=== PATIENT | female | born 1965 | race African-American/Black ===

== ENCOUNTER 2020-09-01 13:44 | Emergency (ER) | payer OTHER ==
[~2020-09-01] VITALS: Ht 165.1 cm; Wt 59.1 kg
[~2020-09-01 13:44] MED LIST: ALBU8.5H8 IH; ALBU8HFA4 IH; AZIT-84 PO; BENZ-51 PO; CLON0.1T2 PO; LORA10TA7 PO; LOSA50TA37 PO; VERA240C3 PO
[2020-09-01] MEDS ORDERED: PERTUSS(ACELL),DIPH,TET VAC/PF 0.5 ML VIAL IM ONE (15:00)
[2020-09-01] MEDS ORDERED: LIDOCAINE 5% TRANSDERMAL PATCH TD ONE (15:00)
[2020-09-01] MEDS ORDERED: CYCLOBENZAPRINE HCL 10 MG TABLET PO ONE (15:00)
[2020-09-01] MEDS ORDERED: ACETAMINOPHEN 500 MG TABLET PO ONE (15:00)
[2020-09-01 15:33] VITALS: BP 168/120
[2020-09-01 15:36] LABS: COVID AG,FIA SOURCE NASOPHARYNGEAL
[2020-09-01] MEDS ORDERED: IBUPROFEN 400 MG TABLET PO ONE (16:30)
== END 2020-09-01 16:58 | disposition left against medical advice (07) ==
LOC: EMS 13:55
DX: S60.812A Abrasion of left wrist, initial encounter (principal); S80.212A Abrasion, left knee, initial encounter; F12.90 Cannabis use, unspecified, uncomplicated; F15.90 Other stimulant use, unspecified, uncomplicated; Z20.822 Contact with and (suspected) exposure to COVID-19; F17.210 Nicotine dependence, cigarettes, uncomplicated; Y04.0XXA Assault by unarmed brawl or fight, initial encounter; Y93.89 Activity, other specified; Y92.89 Other specified places as the place of occurrence of the external cause; Y99.8 Other external cause status
CPT/HCPCS: 70450; 72125; 87426; 90471; 90715; 99285